=== PATIENT | female | born 1975 | race Caucasian/White ===

== ENCOUNTER 2020-08-08 09:47 | Emergency (ER) | payer OTHER ==
[~2020-08-08] VITALS: Ht 170.2 cm; Wt 88.1 kg
[~2020-08-08 09:47] MED LIST: FLON1SPR; GABA-1171 PO; IBUP1TAB7 PO; PENT500C PO; PERCOCET PO; POLY17PO18 PO; SENN-53 PO; SOMA350T PO; ZANA4TAB PO
[2020-08-08 09:48] VITALS: BP 139/89
== END 2020-08-08 09:58 | disposition left against medical advice (07) ==
LOC: M ED 09:47
DX: Z53.21 Procedure and treatment not carried out due to patient leaving prior to being seen by health care provider (principal)